=== PATIENT | male | born 1945 | race Caucasian/White ===

== ENCOUNTER 2019-08-05 05:05 | Inpatient (IN) | payer OTHER, MEDICAID, SELFPAY ==
[~2019-08-05] VITALS: Ht 165.1 cm; Wt 68.0 kg
[2019-08-05 05:05] VITALS: BP 150/98
--- NOTE | 2019-08-05 05:05 | NUR ---
PT TAKEN TO BED 10
--- NOTE | 2019-08-05 05:32 | NUR ---
PT TRAY CONTACT IS [phone], MIKE ARANGO.
[2019-08-05] MEDS ORDERED: MORPHINE SULFATE 2 MG/ML SYR IVP ONE (05:35)
--- NOTE | 2019-08-05 05:55 | NUR ---
pt medicated with morphine for epigastric pain
--- NOTE | 2019-08-05 05:55 | NUR ---
Babatunde estrada in [facility] - 08/05/19 at 0658 by [facility] PT MEDICATED WITH TORADOL FOR ABDOMINAL PAIN
--- NOTE | 2019-08-05 05:56 | NUR ---
73M CAME FROM HOME C/O ABDOMINAL PAIN/ EPIGASTRIC PAIN X 8 DAYS AND REPORTS PAIN AT 12/23. PT HAS HX OF A.FIB. HR 104 AT ARRIVAL. O2SAT 98%, TEMP 97.7, RESPIRATIONS 22. NKA MEDICAL HX: DM, HTN, CARDIAC PROBLEMS, HYPERLIPIDEMIA RX: REFER TO PT. CHART Addendum: 08/05/19 at 0603 by [facility] PT REPORTS NAUSEA AND DIARRHEA X 2 DAYS BUT NO EPISODE FOR THIS MORNING. BOWEL SOUNDS NORMOACTIVE. ABDOMEN SOFT AND NONTENDER.
[2019-08-05 06:01] LABS: HEMATOCRIT 35.3 % (36-52); HEMOGLOBIN 11.3 g/dL (12.0-18.0); MEAN CORPUSCULAR HEMOGLOBIN 25 pg (27-31); MEAN CORPUSCULAR HGB CONC 32 g/dL (33-37); MEAN CORPUSCULAR VOLUME 79.3 fL (80-94); PLATELET COUNT (AUTO) 301 K/uL (140-450); RED BLOOD CELL COUNT(AUTO) 4.46 MIL/uL (4.20-6.10); RED CELL DISTRIBUTION WIDTH 25.6 % (11.6-13.7); WHITE BLOOD COUNT (AUTO) 6.2 K/uL (4.8-10.8)
--- NOTE | 2019-08-05 06:05 | NUR ---
XRAY AT BEDSIDE.
[2019-08-05 06:20] LABS: ALBUMIN 3.6 g/dL (3.4-5.0); ANION GAP 10.2 (8-16); ASPARTATE AMINOTRANSFERASE 80 U/L (15-37); CARBON DIOXIDE 33.9 mmol/L (21-32); CHLORIDE 97 mmol/L (98-107); CREATININE 2.9 mg/dL (0.6-1.3); GLUCOSE 184 mg/dL (74-106); LIPASE 89 U/L (73-393); POTASSIUM 5.1 mmol/L (3.5-5.1); SODIUM SERUM 136 mmol/L (136-145); TOTAL BILIRUBIN 0.8 mg/dL (0.0-1.0); UREA NITROGEN, BLOOD 58 mg/dL (7-18)
[2019-08-05 06:26] LABS: LYMPHOCYTES % (MANUAL) 7 % (20-46); MONOCYTES % (MANUAL) 4 % (5-12)
--- NOTE | 2019-08-05 06:37 | NUR ---
PMHX: A.FIB, ANEMIA, CHF, CORONARY ARTERY DISEASE, CORONARY STENT PLACEMENT, DM, GI BLEED, CABG, HYPERLIPEMIA, HTN
[2019-08-05] MEDS ORDERED: FERR325E14 PO (06:53)
[2019-08-05] MEDS ORDERED: CARV12.5 PO (06:53)
[2019-08-05] MEDS ORDERED: FAMO-90 PO (06:53)
[2019-08-05] MEDS ORDERED: METF500T2 PO (06:53)
[2019-08-05] MEDS ORDERED: FURO-570 PO (06:53)
[2019-08-05] MEDS ORDERED: RIVA15TA1 PO (06:53)
[2019-08-05] MEDS ORDERED: ATI.5 PO (06:53)
[2019-08-05] MEDS ORDERED: SPIR25TA20 PO (06:53)
[2019-08-05] MEDS ORDERED: LISI-420 PO (06:53)
[2019-08-05] MEDS ORDERED: CLOP75TA55 PO (06:53)
[2019-08-05] MEDS ORDERED: ISOS10TA19 PO (06:53)
--- NOTE | 2019-08-05 07:10 | NUR ---
received report from YASMIN Warren for continuation of care. VSS, 07/23 pain
[2019-08-05] MEDS ORDERED: NACL 0.9% 1,000 ML IV SCH (07:17)
[2019-08-05] MEDS ORDERED: HYDROcodone/APAP 5/325 MG 1 TAB TAB PO PRN (07:20)
[2019-08-05] MEDS ORDERED: DOCUSATE SODIUM 100 MG GELCAP PO PRN ×2 (07:20→08:10)
[2019-08-05] MEDS ORDERED: ONDANSETRON 4 MG/2 ML VIAL IM/IVP PRN ×2 (07:20→08:10)
[2019-08-05] MEDS ORDERED: MORPHINE SULFATE 2 MG/ML SYR IVP PRN (07:20)
[2019-08-05] MEDS ORDERED: ACETAMINOPHEN 325 MG TAB PO PRN ×2 (07:20→08:10)
--- NOTE | 2019-08-05 07:44 | NUR ---
urine collected and walked to lab
--- NOTE | 2019-08-05 07:50 | NUR ---
RECEIVED PATIENT FROM [facility] ED NURSE FOR CONTINUITY OF CARE. PATIENT IS AAOX4, IRISH SPEAKING. RESPIRATIONS EVEN AND UNLABORED, ROOM AIR. VISIBLE CHEST RISE AND FALL NOTED. ON TELE MONITORING. DX OF CHEST PAIN. PATIENT C/O OF 4/10 CHEST PAIN BUT TOLERABLE. HE HAS GOTTEN MORPHINE AT ED. ABDOMEN SOFT AND NONTENDER. CARDIAC DIET. ON STRICT I&O WITH 1.5L FLUID RESTRICTION. SKIN WARM, DRY, AND INTACT. IV ON THE RIGHT AC G 20, SALINE LOCK. IV INTACT. PATIENT IS AMBULATORY. USES THE RESTROOM TOLERATED. UNIVERSAL FALL PRECAUTION. BED IN LOW POSITION. CALL LIGHT IS WITHIN REACH. WILL CONTINUE TO MONITOR.
--- NOTE | 2019-08-05 08:04 | NUR ---
Patient will be admitted to care of Dr. Berger. Admited to telemetry. Will go to room 112B. Belongings list completed. Report to YASMIN Boo.
--- NOTE | 2019-08-05 08:05 | NUR ---
HANG NS AT A RATE OF 60 ML/HR. SWABBED NARES FOR MRSA SCREEN. PATIENT STATED CHEST PAIN OF 4/10 THAT IS TOLERABLE. WILL CONTINUE TO MONITOR.
[2019-08-05] MEDS ORDERED: FAMOTIDINE 20 MG/2 ML VIAL IV PRN (08:10)
[2019-08-05] MEDS ORDERED: HYDROcodone/APAP 7.5/325 MG 1 TAB PO PRN (08:10)
[2019-08-05] MEDS ORDERED: LORazepam 2 MG/ML VIAL IM/IVP PRN (08:10)
[2019-08-05 08:28] LABS: CHOL/HDL RATIO 5.4 (1-4.5); MAGNESIUM 2.4 mg/dL (1.8-2.4); THYROID STIMULATING HORMONE 2.72 uIU/mL (0.34-3.74)
[2019-08-05] MEDS: FUROSEMIDE 40 MG/4 ML VIAL IVP SCH ×2 (09:10→16:42)
--- NOTE | 2019-08-05 09:11 | NUR ---
GIVEN LASIX VIA IVP. EXPLAINED MEDICATION. GIVEN VIETNAMESE MONOGRAM OF THE MEDICATION INFORMATION. PATIENT VERBALIZED UNDERSTANDING. DR. BONILLA AT BEDSIDE. WILL CONTINUE OT MONITOR.
[2019-08-05] MEDS ORDERED: LORazepam 0.5 MG TAB PO PRN (09:15)
[2019-08-05] MEDS ORDERED: metFORMIN 500 MG TAB PO SCH (09:15)
[2019-08-05] MEDS ORDERED: GLUCAGON 1 MG VIAL IVP PRN (09:20)
[2019-08-05] MEDS ORDERED: DEXTROSE 50% 50 ML SYR IVP PRN (09:20)
[2019-08-05 09:30] LABS: APPEARANCE,URINE SL CLOUDY (CLEAR); BILIRUBIN,URINE NEGATIVE (NEGATIVE); BLOOD, URINE NEGATIVE (NEGATIVE); COLOR,URINE DARK YELLOW (YELLOW); LEUKOCYTE ESTERASE ,URINE NEGATIVE (NEGATIVE); NITRITE, URINE NEGATIVE (NEGATIVE); PH,URINE 6.5 (5.0-9.0); UGLUCOSE NEGATIVE (NEGATIVE)
[2019-08-05 09:50] LABS: BARBITURATE, URINE NEGATIVE ng/ml (NEG <=200)
[2019-08-05 09:51] LABS: BENZODIAZEPINE, URINE POSITIVE ng/mL (NEG <=200); CANNABINOID, URINE NEGATIVE ng/mL (NEG <=50); COCAINE, URINE NEGATIVE ng/mL (NEG <=300); OPIATE, URINE POSITIVE ng/mL (NEG <=2000); PHENCYCLIDINE SCREEN,URINE NEGATIVE ng/mL (NEG <=25)
--- NOTE | 2019-08-05 09:54 | NUR ---
Railroad Car Truck Builder Note: Basic Screen: Yes High Risk DC Screen [place]: MIKE Sanchez Relationship: SON Pre-Admission Living Arrangements: Lives with Other Prior ADL Independent Current Home Health Name/Tel: N/A Current DME/02 Name/Tel: N/A Current Hospice Name/Tel: N/A Current Dialysis Name/Tel: N/A Healthcare Decision Maker: Patient Advance Directive No Physician Orders for Life Sustaining Treatment Form No Patient/Family Have Educational Needs No Information Taught: Advance Directive Person Taught: Patient Teaching Tools: Verbal Factors Affecting Learning: None Participation Level: Active Evaluation: Verbalizes Understanding Needs Additional Education: No Discipline: Case Mgt/Social Svcs Tentative Discharge Plan/Destination: No Needs Identified Will require assistance post discharge: No Referred to Retail Receiving Clerk: No Tentative Discharge Plan Summary: Patient is a 73-year-old male admitted for chest pain. Patient has PMHX of cardiac disorders and hypertension. Patient was admitted from home where he lives with , son, and roommate. SW contacted Mike Springer Jr. to complete assessment [phone]. Per Mike, patient is independent with all ADLs and is alert/oriented at baseline. Mike stated that he lives with patient and assists patient with transportation. Mike stated that patient has no history of mental health or substance abuse. Mike stated that patient sometimes has periods of forgetfulness but was told that it could be a side effect of medication that patient is taken by physician. Tentative discharge plan is for patient to return home. No further needs identified. Signature: AIDA Alonzo Date: Aug 05, 2019 Time: 09:54
[2019-08-05] MEDS: FERROUS SULFATE 325 MG TABEC PO SCH (10:07)
[2019-08-05] MEDS: CLOPIDOGREL 75 MG TAB PO SCH (10:08)
[2019-08-05] MEDS: CARVEDILOL 12.5 MG TAB PO SCH ×2 (10:08→20:24)
[2019-08-05] MEDS: ISOSORBIDE MONONITRATE 30 MG TABER PO SCH (10:08)
--- NOTE | 2019-08-05 10:10 | NUR ---
GIVEN MORNING MEDICATIONS PO. EXPLAINED MEDICATIONS. PATIENT VERBALIZED UNDERSTANDING. WILL CONTINUE TO MONITOR.
--- NOTE | 2019-08-05 10:23 | NUR ---
DC PLANNIN YRS OLD MALE PATIENT WAS ADMITTED FROM HOME WITH A DX OF CHEST PAIN. TROP 0.017 AND PENDING FOR X2. PT HAS A HX OF HTN, DM, HLD, PROSTATE CANCER ,INSOMNIA AND EARLY DEMENTIA. CXR (-) FOR PNEUMONIA SHOWED SMALL PLEURAL EFFUSION. CT ABDOMEN/PELVIS SHOWED NONSPECIFIC GALLBLADDER WAS THICKENING ACUTE CHOLECYSTITIS NOT EXCLUDED AND RECOMMENDED US OF ABDOMEN. CARDIOLOGY CONSULT WITH DR BERRIOS . CM TO FOLLOW . Addendum: 08/07/19 at 1155 by Guerita Rosales CM DC PLANNING: SEEN BY CALENDER LET OFF OPERATOR , SCHEDULED FOR NATTY SCAN TODAY , NEPHRO RECOMMENDED STRICT I&O DAILY WT AND CHECK RENAL US. DC PLAN TO GO HOME WHEN STABLE CM TO FOLLOW.
--- NOTE | 2019-08-05 10:38 | NUR ---
TKO TO 5 ML/HR NS IVF
--- NOTE | 2019-08-05 10:45 | NUR ---
PATIENT AMBULATED TO THE BATHROOM. NO DIZZINESS. WILL CONTINUE TO MONITOR
[2019-08-05] MEDS: BLOOD GLUCOSE MONITORING 1 DEV DEV FS SCH ×3 (11:10→20:20)
--- NOTE | 2019-08-05 11:22 | NUR ---
BLOOD SUGAR CHECK 139. NO INSULIN COVERAGE NEED. WILL CONTINUE TO MONITOR
--- NOTE | 2019-08-05 11:36 | NUR ---
GIVEN NORCO FOR LOWER CHEST PAIN 09/22. EXPLAINED MEDICATION. PATIENT VERBALIZED UNDERSTANDING. BED IN LOW POSITION. CALL LIGHT IS WITHIN REACH. WILL CONTINUE TO MONITOR.
[2019-08-05 11:53] LABS: ALBUMIN 3.7 g/dL (3.4-5.0); FREE T4 (FREE THYROXINE) 1.18 ng/dL (0.76-1.46)
[2019-08-05 12:00] VITALS: BP 138/102
[2019-08-05 12:03] LABS: PROTHROMBIN TIME 14.4 secs (10.8-13.4)
--- NOTE | 2019-08-05 12:15 | NUR ---
CRITICAL LAB: LACTIC ACID 2.9. TRENDING. DR. ROSSI IS AWARE.
[2019-08-05 12:23] LABS: ANION GAP 12.7 (8-16); CARBON DIOXIDE 32.3 mmol/L (21-32); CHLORIDE 97 mmol/L (98-107); GLUCOSE 152 mg/dL (74-106); SODIUM SERUM 137 mmol/L (136-145); UREA NITROGEN, BLOOD 58 mg/dL (7-18)
--- NOTE | 2019-08-05 12:28 | NUR ---
EXPLAINED TO PATIENT THAT HE WILL NOT BE ABLE TO EAT BECAUSE DR. ROSSI ORDERED FOR HIM NPO EXCEPT MEDICATIONS. PATIENT VERBALIZED UNDERSTANDING. WILL CONTINUE TO MONITOR.
--- NOTE | 2019-08-05 12:35 | NUR ---
REASSESSED FOR PAIN. PATIENT STATED 1/0 CHEST PAIN, TOLERABLE. WILL CONTINUE TO MONITOR.
--- NOTE | 2019-08-05 14:26 | NUR ---
PATIENT C/O NAUSEA AND VOMITING. GIVEN ZOFRAN VIA IVP. EXPLAINED MEDICATION. PATIENT VERBALIZED UNDERSTANDING. PATIENT STATED THAT HE DID NOT HAVE ANY BM SINCE HE GOT TO THE UNIT. HE HAD ONE EARLIER TODAY PRIOR TO GOING IN ED. WILL CONTINUE TO MONITOR.
[2019-08-05 16:00] VITALS: BP 138/105
--- NOTE | 2019-08-05 16:45 | NUR ---
BLOOD SUGAR CHECK: 132. NO INSULIN COVERAGE. GIVEN LASIX VIA IVP. EXPLAINED MEDICATION. PATIENT VERBALIZED UNDERSTANDING. BED IN LOW POSITION. CALL LIGHT IS WITHIN REACH. WILL CONTINUE TO MONITOR.
--- NOTE | 2019-08-05 18:10 | NUR ---
PATIENT IS EATING DINNER AT THIS TIME. NO SIGNS OF DISTRESS NOTED. BED IN LOW POSITION. CALL LIGHT IS WITHIN REACH. WILL CONTINUE TO MONITOR.
--- NOTE | 2019-08-05 19:15 | NUR ---
ENDORSED PATIENT TO THE MALLET AND DIE CUTTER NURSE FOR CONTINUITY OF CARE. PATIENT IS IN STABLE CONDITION.
--- NOTE | 2019-08-05 19:15 | NUR ---
RECEIVED PT AAOX4 , NID - O2 SAT WNL , DENIES ANY PAIN . IV SITE INTACT AND PATENT., AMBULATORY - ON TELE MONITOR. SAFETY / FALL PRECAUTION PROTOCOL IN PLACE . POC DISCUSSED AND VERBALIZE UNDERSTANDING . WILL CONT. TO MONITOR. ON LIMITED FLD. INTAKE RE EMPAHASIZED .
[2019-08-05 20:00] VITALS: BP 121/90
[2019-08-05] MEDS: RIVAROXABAN 15 MG TAB PO SCH (20:27)
--- NOTE | 2019-08-05 20:30 | NUR ---
C/O OF CONSTIPATION - HE HAS NO BM SINCE HE ADMITED HERE - DENIES DIARRHEA - GIVE PRN COLACE- WILL INFORM EMELY.FOR STILL STOOL COLLECTION.
[2019-08-05] MEDS ORDERED: ATORVASTATIN 20 MG TAB PO SCH (21:00)
[2019-08-06] VITALS: BP 124/76
--- NOTE | 2019-08-06 | NUR ---
MADE ROUNDS , NO S/S OF ACUTE DISTRESS NOTED.
[2019-08-06] MEDS ORDERED: POLYETHYLENE GLYCOL 17 GM/PKT PO SCH (03:45)
[2019-08-06 04:00] VITALS: BP 121/77
--- NOTE | 2019-08-06 04:00 | NUR ---
PT . WENT TO NURSE'S STATION - HE IS COMPLAINING OF CONSTIPATION HE SAID SEEMS COLACE DOES NOT WORKS - WILL REFER TO EMELY.
--- NOTE | 2019-08-06 04:54 | NUR ---
MIRALAX P.O GIVEN ORDERED . RESTRICTED FLD. INTAKE RE EMPHASIZED .WILL CONT. TO MONITOR.
--- NOTE | 2019-08-06 06:00 | NUR ---
STILL NO BM .
[2019-08-06 06:07] LABS: T4 (THYROXINE) 5.4 ug/dL (4.5-12.0)
[2019-08-06] MEDS: BLOOD GLUCOSE MONITORING 1 DEV DEV FS SCH ×4 (06:33→21:31)
--- NOTE | 2019-08-06 07:18 | NUR ---
ENDORSED TO AM SHIFT - STILL NO BM . I TOLD TO CHUCKIE IF EVER PT. STILL NO BM - REFER HIM TO EMELY FOR POSSIBLE DULCOLAX SUPP.
--- NOTE | 2019-08-06 07:19 | NUR ---
RECEIVED REPORT FROM LINK TRAINER NURSE ASHLEY FOR CONTINUITY OF CARE. PT IN STABLE CONDITION. RESPIRATIONS EVEN AND UNLABORED, ROOM AIR. IV INTACT AND PATENT. SAFETY MEASURES IN PLACE. BED IN LOW POSITION. CALL LIGHT AT BEDSIDE. WILL CONTINUE TO MONITOR.
[2019-08-06 07:35] LABS: BASOPHILS % (AUTO) 0.7 % (0.0-2.0); EOSINOPHILS # (AUTO) 0.1 K/uL (0-0.4); EOSINOPHILS % (AUTO) 1.1 % (0.0-4.0); HEMOGLOBIN 10.1 g/dL (12.0-18.0); LYMPHOCYTES # (AUTO) 0.9 K/uL (2.0-11.5); LYMPHOCYTES % (AUTO) 15.4 % (20.5-51.1); MEAN CORPUSCULAR HEMOGLOBIN 26 pg (27-31); MEAN CORPUSCULAR HGB CONC 33 g/dL (33-37); MEAN CORPUSCULAR VOLUME 79.5 fL (80-94); MONOCYTES # (AUTO) 0.5 K/uL (0.8-1.0); MONOCYTES % (AUTO) 8.1 % (1.7-9.3); NEUTROPHILS # (AUTO) 4.4 K/uL (1.8-7.7); NEUTROPHILS % (AUTO) 74.7 % (42.2-75.2); PLATELET COUNT (AUTO) 260 K/uL (140-450); RED CELL DISTRIBUTION WIDTH 25.4 % (11.6-13.7); WHITE BLOOD COUNT (AUTO) 5.9 K/uL (4.8-10.8)
[2019-08-06 07:49] LABS: MAGNESIUM 2.2 mg/dL (1.8-2.4); PHOSPHORUS 4.6 mg/dL (2.5-4.9)
[2019-08-06 07:53] LABS: ANION GAP 11.9 (8-16); CARBON DIOXIDE 33.1 mmol/L (21-32); CHLORIDE 97 mmol/L (98-107); CREATININE 3.1 mg/dL (0.6-1.3); GLUCOSE 99 mg/dL (74-106); SODIUM SERUM 137 mmol/L (136-145)
[2019-08-06 08:00] VITALS: BP 141/88
[2019-08-06 08:56] LABS: UREA NITROGEN, BLOOD 63 mg/dL (7-18)
--- NOTE | 2019-08-06 09:04 | NUR ---
PATIENT HAS BEEN SCREENED AND CATEGORIZED HIGH NUTRITION RISK. PATIENT WILL BE SEEN WITHIN 1-2 DAYS OF ADMISSION. 08/06/[address]
--- NOTE | 2019-08-06 10:05 | NUR ---
PATIENT SIGNED MEDICAL INFORMATION RELEASE FORM FOR [facility] AT THIS TIME.
[2019-08-06] MEDS: FERROUS SULFATE 325 MG TABEC PO SCH (10:23)
[2019-08-06] MEDS: LISINOPRIL 20 MG TAB PO SCH (10:23)
[2019-08-06] MEDS: FAMOTIDINE 20 MG TAB PO SCH (10:24)
[2019-08-06] MEDS: ISOSORBIDE MONONITRATE 30 MG TABER PO SCH (10:25)
[2019-08-06] MEDS: CLOPIDOGREL 75 MG TAB PO SCH (10:25)
[2019-08-06] MEDS: CARVEDILOL 12.5 MG TAB PO SCH ×2 (10:26→21:28)
[2019-08-06] MEDS: FUROSEMIDE 40 MG/4 ML VIAL IVP SCH ×2 (10:27→17:49)
[2019-08-06] MEDS: SPIRONOLACTONE 25 MG TAB PO SCH (10:27)
[2019-08-06 12:00] VITALS: BP 126/82
--- NOTE | 2019-08-06 12:06 | NUR ---
NUCLEAR MEDICINE AT BEDSIDE FOR ECHO AT THIS TIME. PT IN STABLE CONDITION.
--- NOTE | 2019-08-06 14:15 | NUR ---
PATIENT TALKING ON PHONE AT THIS TIME. PATIENT IN STABLE CONDITION. BED IN LOW POSITION. CALL LIGHT AT BEDSIDE. WILL CONTINUE TO MONITOR.
--- NOTE | 2019-08-06 14:57 | NUR ---
08/06/19 RD INITIAL ASSESSMENT COMPLETED PLEASE REFER TO NUTRITION ASSESSMENT UNDER CARE ACTIVITY FOR ESTIMATED NUTRITIONAL NEEDS. 1. CONTINUE CARDIAC AND CCHO 60GM DIET TOLERATED 2. CONTINUE FLUID RESTRICTION OF 1.5 L/DAY 3. RD PROVIDED NUTRITION EDUCATION FOR CARDIAC DIET IN [place]. PT ACCEPTED 4. IF PO INTAKE <50% RECOMMEND SNACKS BID 5. RD TO FOLLOW-UP 3-5 DAYS, MODERATE RISK [address]
[2019-08-06 16:00] VITALS: BP 134/88
--- NOTE | 2019-08-06 16:10 | NUR ---
PT WATCHING TV AT THIS TIME. PATIENT IN STABLE CONDITION. BED IN LOW POSITION. CALL LIGHT AT BEDSIDE. WILL CONTINUE TO MONITOR.
[2019-08-06] MEDS ORDERED: BISACODYL 5 MG TABEC PO PRN (16:45)
[2019-08-06] MEDS: SODIUM FERRIC GLUCONATE 125 MG in NACL 0.9% 100 ML IV SCH (17:49)
--- NOTE | 2019-08-06 17:52 | NUR ---
CERTIFIED TRAVEL COUNSELOR AT BEDSIDE FOR KIDNEY ULTRASOUND. PT IN STABLE CONDITION. BED IN LOW POSITION. CALL LIGHT AT BEDSIDE. WILL CONTINUE TO MONITOR.
--- NOTE | 2019-08-06 19:15 | NUR ---
GAVE REPORT TO OPHTHALMIC ASST NURSE COURT FOR CONTINUITY OF CARE. PT IN STABLE CONDITION.
--- NOTE | 2019-08-06 19:16 | NUR ---
RECEIVED ENDORSEMENT AT BEDSIDE FROM AM SHIFT RN. PATIENT IS CITIZEN OF [place] SPEAKING, ABLE TO MAKE NEEDS KNOWN. RESPIRATION EVEN AND UNLABORED. DENIES PAIN. NO CHEST PAIN. IV SITE AT RAC 20G. INTACT. STRICK I AND O OF 1.5 LITERS/DAY. PLAN OF CARE WAS DISCUSSED. CALL LIGHT WITHIN REACH. WILL CONTINUE TO MONITOR.
--- NOTE | 2019-08-06 19:50 | NUR ---
RECEIVED A CALL FROM SHIV AT [facility]. HE GAVE INSTRUCTIONS FOR STRESS TEST TOMORROW TO HOLD/NO CAFFEINE FOR 8 HOURS, NPO POST BREAKFAST AND HOLD HOLD BETA IRIS TOMORROW. INSTRUCTIONS NOTED. I EXPLAINED TO PATIENT IN DETAIL. PATIENT VERBALIZED UNDERSTANDING.
[2019-08-06 20:00] VITALS: BP 136/92
[2019-08-06] MEDS: RIVAROXABAN 15 MG TAB PO SCH (21:30)
[2019-08-06] MEDS: INSULIN LISPRO SLIDING SCALE 100 UNITS/ML VIAL SUBQ PRN (21:31)
--- NOTE | 2019-08-06 21:31 | NUR ---
DUE MEDS GIVEN ORDERED. TOLERATED WELL. PATIENT REFUSED INSULIN 2 UNITS FOR BLOOD SUGAR OF 151. PATIENT SAID HE DIDN'T EAT MUCH. PER ENDORSEMENT BY AM NURSE, PATIENT HAS DECREASED APPETITE. CALL LIGHT WITHIN REACH. WILL CONTINUE TO MONITOR.
[2019-08-07] VITALS: BP 143/85
--- NOTE | 2019-08-07 | NUR ---
VITAL SIGNS STABLE. PATIENT IN BED. DENIES ANY PAIN OR DISCOMFORT. SAFETY MEASURES IN PLACE. CALL LIGHT WITHIN REACH. WILL CONTINUE TO MONITOR.
[2019-08-07] MEDS: MELATONIN 3 MG TAB PO PRN (02:07)
--- NOTE | 2019-08-07 02:09 | NUR ---
PATIENT SAID HE CANNOT SLEEP AND WANTED SOMETHING FOR SLEEP. ENCOURAGED RELAXATION. INFORMED RESIDENT DOCTOR. DOCTOR ORDERED MELATONIN 3MG PRN. MELATONIN GIVEN TO PATIENT. CALL LIGHT WITHIN REACH. WILL CONTINUE TO MONITOR.
--- NOTE | 2019-08-07 02:43 | NUR ---
C/O LEFT SHOULDER PAIN. 06/22. REPOSITIONED. TYLENOL 650MG PO GIVEN ORDERED. WILL CONTINUE TO MONITOR. Addendum: 08/07/19 at 0750 by Joann Davis RN WRONG PATIENT
[2019-08-07 04:00] VITALS: BP 134/86
--- NOTE | 2019-08-07 06:00 | NUR ---
PATIENT IS AWAKE. BLOOD SUGAR CHECKED 137. NO INSULIN NEEDED. PATIENT IS STABLE. DENIES PAIN. NO SOB.
[2019-08-07] MEDS: BLOOD GLUCOSE MONITORING 1 DEV DEV FS SCH ×4 (06:20→20:11)
--- NOTE | 2019-08-07 07:27 | NUR ---
PATIENT IS STABLE. DENIES PAIN. NO SOB. ENDORSED TO AM SHIFT RN FOR CONTINUITY OF CARE.
--- NOTE | 2019-08-07 07:28 | NUR ---
SHIFT REPORT RECEIVED FROM JR. SYSTEMS ADMINISTRATOR NURSE. PT IS IN BED RESPONSIVE TO VERBAL STIMULI. NO DISTRESS NOTED. NO COMPLAINS OF PAIN. SAFETY MEASURES IN PLACE. CALL LIGHT IN REACH. WILL CONTINUE TO MONITOR.
[2019-08-07 07:49] LABS: MAGNESIUM 2.3 mg/dL (1.8-2.4); PHOSPHORUS 5.2 mg/dL (2.5-4.9)
[2019-08-07 08:00] VITALS: BP 136/96
[2019-08-07 08:05] LABS: BASOPHILS % (AUTO) 0.5 % (0.0-2.0); EOSINOPHILS # (AUTO) 0.2 K/uL (0-0.4); EOSINOPHILS % (AUTO) 2.4 % (0.0-4.0); HEMATOCRIT 36.5 % (36-52); HEMOGLOBIN 11.6 g/dL (12.0-18.0); LYMPHOCYTES # (AUTO) 0.6 K/uL (2.0-11.5); MEAN CORPUSCULAR HEMOGLOBIN 25 pg (27-31); MEAN CORPUSCULAR HGB CONC 32 g/dL (33-37); MEAN CORPUSCULAR VOLUME 79.8 fL (80-94); MONOCYTES # (AUTO) 0.4 K/uL (0.8-1.0); MONOCYTES % (AUTO) 6.5 % (1.7-9.3); NEUTROPHILS # (AUTO) 5.5 K/uL (1.8-7.7); NEUTROPHILS % (AUTO) 81.6 % (42.2-75.2); PLATELET COUNT (AUTO) 310 K/uL (140-450); RED BLOOD CELL COUNT(AUTO) 4.58 MIL/uL (4.20-6.10); RED CELL DISTRIBUTION WIDTH 25.6 % (11.6-13.7); WHITE BLOOD COUNT (AUTO) 6.7 K/uL (4.8-10.8)
[2019-08-07 08:08] LABS: FOLIC ACID 12.8 ng/mL (>3.0)
[2019-08-07 08:20] LABS: ANION GAP 13.4 (8-16); CARBON DIOXIDE 31.5 mmol/L (21-32); CHLORIDE 96 mmol/L (98-107); CREATININE 2.6 mg/dL (0.6-1.3); GLUCOSE 124 mg/dL (74-106); POTASSIUM 3.9 mmol/L (3.5-5.1); SODIUM SERUM 137 mmol/L (136-145); UREA NITROGEN, BLOOD 59 mg/dL (7-18)
[2019-08-07] MEDS: FUROSEMIDE 40 MG/4 ML VIAL IVP SCH ×2 (08:35→16:16)
[2019-08-07] MEDS: FERROUS SULFATE 325 MG TABEC PO SCH (08:35)
[2019-08-07] MEDS: ISOSORBIDE MONONITRATE 30 MG TABER PO SCH (08:36)
[2019-08-07] MEDS: CLOPIDOGREL 75 MG TAB PO SCH (08:36)
[2019-08-07] MEDS: CARVEDILOL 12.5 MG TAB PO SCH ×2 (08:36→20:17)
[2019-08-07] MEDS: LISINOPRIL 20 MG TAB PO SCH (08:37)
[2019-08-07] MEDS: FAMOTIDINE 20 MG TAB PO SCH (08:37)
[2019-08-07] MEDS: SPIRONOLACTONE 25 MG TAB PO SCH (08:37)
[2019-08-07] MEDS: busPIRone 5 MG TAB PO SCH ×2 (08:40→20:18)
--- NOTE | 2019-08-07 09:00 | NUR ---
PT IS STABLE AND AMBULATING IN ROOM. NO DISTRESS OR COMPLAINS OF PAIN REPORTED. WILL CONTINUE TO MONITOR. CALL LIGHT IN REACH.
[2019-08-07 12:00] VITALS: BP 138/89
--- NOTE | 2019-08-07 13:05 | NUR ---
PT IS OFF OF UNIT FOR LEXISCAN.
[2019-08-07] MEDS ORDERED: REGADENOSON 0.4 MG/5 ML SYR IV SCH (14:30)
--- NOTE | 2019-08-07 15:00 | NUR ---
PT IS AWAKE AND RESPONSIVE. PT AMBULATES TO RESTROOM. NO COMPLAINS OF PAIN O DISTRESS NOTED. WILL CONTINUE TO MONITOR. CALL LIGHT IN REACH.
[2019-08-07 16:00] VITALS: BP 130/79
[2019-08-07] MEDS: INSULIN LISPRO SLIDING SCALE 100 UNITS/ML VIAL SUBQ PRN (16:18)
[2019-08-07] MEDS: SODIUM FERRIC GLUCONATE 125 MG in NACL 0.9% 100 ML IV SCH (17:41)
--- NOTE | 2019-08-07 18:41 | NUR ---
PT IS AWAKE AND RESPONSIVE. PT HAD DINNER. NO COMPLAINS OF PAIN O DISTRESS NOTED. WILL CONTINUE TO MONITOR. CALL LIGHT IN REACH.
--- NOTE | 2019-08-07 19:09 | NUR ---
SHIFT REPORT GIVEN TO WINDOWS DEPLOYMENT TECHNICIAN NURSE. PT IS IN BED AWAKE RESPONSIVE AND IN STABLE CONDITION. SAFETY MEASURES IN PLACE. CALL LIGHT IN REACH.
--- NOTE | 2019-08-07 19:10 | NUR ---
RECEIVED REPORT FROM DAY SHIFT NURSE. PATIENT IN BED. AWAKE AND ALERT. ABLE TO MAKE NEEDS KNOWN. DENIES ANY PAIN OR DISCOMFORT AT THIS TIME. RESPIRATIONS EVEN AND UNLABORED. IV ACCESS PATENT AND INTACT. PLAN OF CARE DISCUSSED. KEPT COMFORTABLE. SAFETY MEASURES IN PLACE. CALL LIGHT WITHIN REACH. WILL CONTINUE TO MONITOR.
[2019-08-07 20:00] VITALS: BP 138/74
[2019-08-07] MEDS: RIVAROXABAN 15 MG TAB PO SCH (20:20)
--- NOTE | 2019-08-07 20:22 | NUR ---
VITAL SIGNS STABLE. SCHEDULED MEDICATIONS GIVEN ORDERED. PATIENT DENIES ANY PAIN OR DISCOMFORT AT THIS TIME. SAFETY MEASURES IN PLACE. WILL CONTINUE TO MONITOR.
--- NOTE | 2019-08-07 22:11 | NUR ---
PATIENT JUST GOT IN BED AFTER GOING TO BATHROOM. NO S/SX OF DISTRESS NOTED. WATER GIVEN REQUESTED. DENIES ANY PAIN OR DISCOMFORT. SAFETY MEASURES IN PLACE. CALL LIGHT WITHIN REACH. WILL CONTINUE TO MONITOR.
--- NOTE | 2019-08-07 23:53 | NUR ---
VITAL SIGNS STABLE. PATIENT IN BED. DENIES ANY PAIN OR DISCOMFORT. SAFETY MEASURES IN PLACE. CALL LIGHT WITHIN REACH. WILL CONTINUE TO MONITOR.
[2019-08-08] VITALS (8 sets, daily range): BP systolic 129–145; BP diastolic 68–99
--- NOTE | 2019-08-08 01:10 | NUR ---
RECEIVED CALL PT ACCEPTED TO [facility] UNDER DR HIRSCH, TRANSFER CENTER WILL CALL BACK FOR BED. Addendum: 08/08/19 at 1319 by Anya Paula RN WRONG TIME
--- NOTE | 2019-08-08 04:23 | NUR ---
VITAL SIGN STABLE. PATIENT LYING IN BED RESTING. DENIES ANY PAIN OR DISCOMFORT. RESPIRATIONS EVEN AND UNLABORED. NO REQUESTS MADE AT THIS TIME. KEPT COMFORTABLE. WILL CONTINUE TO MONITOR.
[2019-08-08] MEDS: BLOOD GLUCOSE MONITORING 1 DEV DEV FS SCH ×3 (05:42→16:51)
[2019-08-08] MEDS: MELATONIN 3 MG TAB PO PRN (05:49)
--- NOTE | 2019-08-08 05:53 | NUR ---
PATIENT HAVING TROUBLE SLEEPING. PRN MELATONIN GIVEN REQUESTED BY PATIENT. WILL CONTINUE TO MONITOR.
--- NOTE | 2019-08-08 07:00 | NUR ---
ENDORSED TO DAYSHIFT NURSE FOR CONTINUITY OF CARE. PATIENT IN STABLE CONDITION.
--- NOTE | 2019-08-08 07:05 | NUR ---
RECEIVED BEDSIDE REPORT FROM NIGHTSHIFT NURSE. PT RESTING IN BED. ABLE TO MAKE NEEDS KNOWN. RESPIRATIONS EVEN AND UNLABORED WITH NO SOB OR RESPIRATORY DISTRESS. SKIN WARM AND DRY TO TOUCH. IV SITE IN RAC 20G IS CLEAN, DRY, AND INTACT. SAFETY MEASURES IN PLACE. WILL CONTINUE TO MONITOR
[2019-08-08 07:42] LABS: BASOPHILS % (AUTO) 0.5 % (0.0-2.0); EOSINOPHILS # (AUTO) 0.2 K/uL (0-0.4); EOSINOPHILS % (AUTO) 3.5 % (0.0-4.0); HEMATOCRIT 33.6 % (36-52); HEMOGLOBIN 10.8 g/dL (12.0-18.0); LYMPHOCYTES # (AUTO) 0.8 K/uL (2.0-11.5); LYMPHOCYTES % (AUTO) 12.1 % (20.5-51.1); MEAN CORPUSCULAR HEMOGLOBIN 26 pg (27-31); MEAN CORPUSCULAR HGB CONC 32 g/dL (33-37); MEAN CORPUSCULAR VOLUME 79.9 fL (80-94); MONOCYTES # (AUTO) 0.5 K/uL (0.8-1.0); MONOCYTES % (AUTO) 7.8 % (1.7-9.3); NEUTROPHILS # (AUTO) 4.9 K/uL (1.8-7.7); NEUTROPHILS % (AUTO) 76.1 % (42.2-75.2); PLATELET COUNT (AUTO) 338 K/uL (140-450); RED BLOOD CELL COUNT(AUTO) 4.21 MIL/uL (4.20-6.10); RED CELL DISTRIBUTION WIDTH 25.5 % (11.6-13.7); WHITE BLOOD COUNT (AUTO) 6.5 K/uL (4.8-10.8)
[2019-08-08 07:58] LABS: ANION GAP 13.7 (8-16); CARBON DIOXIDE 30.9 mmol/L (21-32); CHLORIDE 100 mmol/L (98-107); GLUCOSE 95 mg/dL (74-106); POTASSIUM 4.6 mmol/L (3.5-5.1); SODIUM SERUM 140 mmol/L (136-145); UREA NITROGEN, BLOOD 42 mg/dL (7-18)
[2019-08-08 08:01] LABS: MAGNESIUM 2.1 mg/dL (1.8-2.4); PHOSPHORUS 4.7 mg/dL (2.5-4.9)
--- NOTE | 2019-08-08 09:14 | NUR ---
CALLED [facility] TRANSFER CENTER REGARDING DR ORDER OF HLOC TX FOR CARDIAC CATH.
[2019-08-08] MEDS: FERROUS SULFATE 325 MG TABEC PO SCH (09:47)
[2019-08-08] MEDS: SPIRONOLACTONE 25 MG TAB PO SCH (09:47)
[2019-08-08] MEDS: ISOSORBIDE MONONITRATE 30 MG TABER PO SCH (09:48)
[2019-08-08] MEDS: FAMOTIDINE 20 MG TAB PO SCH (09:49)
[2019-08-08] MEDS: LISINOPRIL 20 MG TAB PO SCH (09:49)
[2019-08-08] MEDS: busPIRone 5 MG TAB PO SCH (09:49)
[2019-08-08] MEDS: CLOPIDOGREL 75 MG TAB PO SCH (09:50)
[2019-08-08] MEDS: FUROSEMIDE 40 MG/4 ML VIAL IVP SCH (09:51)
[2019-08-08] MEDS: CARVEDILOL 12.5 MG TAB PO SCH (09:51)
--- NOTE | 2019-08-08 09:56 | NUR ---
ADMINISTERED SCHED MED PRESCRIBED PER MD ORDER. PT TOLERATED WELL. MEDICATION EDUCATION PERFORMED. PT VERBALIZED UNDERSTANDING. SAFETY MEASURES IN PLACE. WILL CONTINUE TO MONITOR
--- NOTE | 2019-08-08 10:34 | NUR ---
FAXED FACE SHEETS,H&P AND PROGRESS NOTES TO [facility]
--- NOTE | 2019-08-08 11:30 | NUR ---
PT BLOOD SUGAR IS 138. NO INSULIN COVERAGE NEEDED AT THIS TIME. SAFETY MEASURES IN PLACE. WILL CONTINUE TO MONITOR
--- NOTE | 2019-08-08 12:09 | NUR ---
RECEIVED PHONE CALL REGARDING MORE INFORMATION NEEDED FOR ADMITTING FAXED LABS, IMAGING RESULTS AND CARDIOLOGY CONSULT TO [facility].
--- NOTE | 2019-08-08 12:15 | NUR ---
PT IS AWARE OF TRANSFER TO [facility]. SAFETY MEASURES IN PLACE. WILL CONTINUE TO MONITOR
--- NOTE | 2019-08-08 13:10 | NUR ---
RECEIVED CALL PT ACCEPTED TO [facility] UNDER DR HIRSCH, TRANSFER CENTER WILL CALL BACK FOR BED.
--- NOTE | 2019-08-08 14:14 | NUR ---
PT COMPLAINED OF IV SITE PAIN. IV SITE OCCLUDED AND WAS REMOVED. NEW IV STARTED ON RIGHT WRIST 24G IS CLEAN, DRY, AND INTACT. SAFETY MEASURES IN PLACE. WILL CONTINUE TO MONITOR
--- NOTE | 2019-08-08 15:39 | NUR ---
PT CALLED AND COMPLAINED OF ANXIETY AND RESTLESSNESS. PRN ATIVAN ADMINISTERED PRESCRIBED PER MD ORDER. PT TOLERATED WELL. MEDICATION EDUCATION PERFORMED. PT VERBALIZED UNDERSTANDING. SAFETY MEASURES IN PLACE. WILL CONTINUE TO MONITOR.
[2019-08-08] MEDS ORDERED: SIMETHICONE 80 MG TAB.CHEW PO PRN (15:45)
[2019-08-08] MEDS ORDERED: BISA5TAB79 PO (16:16)
[2019-08-08] MEDS ORDERED: GLUC-805 FS (16:16)
[2019-08-08] MEDS ORDERED: BUS5 PO (16:16)
[2019-08-08] MEDS ORDERED: HUMSLIDE SUBQ (16:16)
[2019-08-08] MEDS ORDERED: MELA3TAB56 PO (16:16)
[2019-08-08] MEDS ORDERED: DOCU-299 PO (16:16)
[2019-08-08] MEDS: INSULIN LISPRO SLIDING SCALE 100 UNITS/ML VIAL SUBQ PRN (17:25)
--- NOTE | 2019-08-08 17:30 | NUR ---
ADMINISTERED SCHED MED PRESCRIBED PER MD ORDER. PT TOLERATED WELL. MEDICATION EDUCATION PERFORMED. PT VERBALIZED UNDERSTANDING. PT FAMILY BROUGHT PT SOME BELONGINGS. BAG GIVEN TO PATIENT. SAFETY MEASURES IN PLACE. WILL CONTINUE TO MONITOR
--- NOTE | 2019-08-08 18:23 | NUR ---
CALLED [facility], WAS TOLD PT HAS A BED IN TELE 2 ROOM 331 b, TOO CALL [phone] FOR REPORT.
--- NOTE | 2019-08-08 18:25 | NUR ---
REPORT GIVEN TO JEISON HOFFMAN AT [facility]. RN VERBALIZED UNDERSTANDING AND READ BACK INFORMATION. SAFETY MEASURES IN PLACE. WILL CONTINUE TO MONITOR
--- NOTE | 2019-08-08 19:20 | NUR ---
ENDORSED AT BEDSIDE. PT IS STABLE
--- NOTE | 2019-08-08 19:25 | NUR ---
RECEIVED FROM AM RN IN BED AWAKE AND SITTING UP IN BED. SPEAKS CHADIAN AND PORTUGUESE. HX. DEMENTIA BUT AWARE OF CARE AND TRANSFER. ABLE TO ASK QUESTIONS AND ABLE TO ANSWER WELL TOO. FOR TRANSFER TO [facility] . TRANSFER REPORT TO RECEIVING NURSE IN [facility] DONE BY NUHA RN. ALL PAPER WORKS IN [place] AND [place] . WAITING FOR TRANSPORTATION.
--- NOTE | 2019-08-08 20:15 | NUR ---
TRANSPORT FOR PT.IN HERE TO TRANSFER [facility]. NO BELONGINGS LEFT BEHIND. A/O X 3. ROM X 4. NO COMPLAINTS DONE.
--- NOTE | 2019-08-08 20:32 | NUR ---
PT. LEFT ROOM WITH ALL BELONGINGS WITH HIM. NOTHING LEFT BEHIND. NAME BAND TAKEN OUT AND CONFIRMED PT. WITH PARAMEDICS. PT. NO COMPLAINTS DONE. REPORT GIVEN TO PARAMEDICS. CAHRGE NURSE MADE AWARE AND CHARGE NURSE AWARE.
[2019-08-09] MEDS ORDERED: FUROSEMIDE 40 MG/4 ML VIAL IVP SCH (09:00)
== END 2019-08-08 20:30 | disposition short-term general hospital (02) | DRG 682 ==
LOC: MED 05:05 → MTU 07:21
PROVIDERS: ADMIT General Practice; ATTEND General Practice
DX: N17.0 Acute kidney failure with tubular necrosis (principal); I50.43 Acute on chronic combined systolic (congestive) and diastolic (congestive) heart failure; E43 Unspecified severe protein-calorie malnutrition; I13.0 Hypertensive heart and chronic kidney disease with heart failure and stage 1 through stage 4 chronic kidney disease, or unspecified chronic kidney disease; D68.59 Other primary thrombophilia; N18.3 Chronic kidney disease, stage 3 (moderate); R74.0 Nonspecific elevation of levels of transaminase and lactic acid dehydrogenase [LDH]; K81.9 Cholecystitis, unspecified; E11.22 Type 2 diabetes mellitus with diabetic chronic kidney disease; Z68.25 Body mass index [BMI] 25.0-25.9, adult; Z95.1 Presence of aortocoronary bypass graft; Z95.5 Presence of coronary angioplasty implant and graft; D50.9 Iron deficiency anemia, unspecified; E11.69 Type 2 diabetes mellitus with other specified complication; E78.5 Hyperlipidemia, unspecified; F41.9 Anxiety disorder, unspecified; I07.1 Rheumatic tricuspid insufficiency; Z85.46 Personal history of malignant neoplasm of prostate; Z90.79 Acquired absence of other genital organ(s); I25.10 Atherosclerotic heart disease of native coronary artery without angina pectoris
CPT/HCPCS: 36415; 71045; 76705; 76770; 80048; 80053; 80305; 81003; 82040; 82140; 82150; 82306; 82607; 82728; 82746; 82948; 83036; 83540; 83605; 83615; 83690; 83735; 83880; 84100; 84300; 84436; 84439; 84443; 84484; 84550; 85025; 85045; 85610; 85730; 87081; 88304; 93017; 96374; 97110; 97116; 97161-GP; 97530; 99285; A9500; A9502; J1815; J1940; J2270; J2405; J2785; J2916; J7030; Q0092

== ENCOUNTER 2020-07-29 03:10 | Emergency (ER) | payer MEDICAID, OTHER ==
[~2020-07-29] VITALS: Ht 165.1 cm; Wt 66.7 kg
[~2020-07-29 03:10] MED LIST: BISA5TAB79 PO; BUS5 PO; CARV25TA PO; CLOP75TA55 PO; DAPA10TA PO; FAMO-90 PO; FERR325E14 PO; FURO-570 PO; GLUC-805 FS; ISOS10TA19 PO; LIP80 PO; RIVA15TA1 PO; SACU1TAB9 PO; SPIR25TA20 PO
[2020-07-29 03:21] VITALS: BP 152/105
--- NOTE | 2020-07-29 03:40 | NUR ---
RECEIVED IN BED 7 WITH C/O EPISTAXIS X 2 HOURS. PT WITH H/O HTN AND IS TAKING BLOOD THINNERS. EPISTAXIS NOTED. ATTACHED TO CM = 100% PACED RHYTHM PMH:HTN, DM, PACEMAKER WITH DEFIB NKDA
[2020-07-29] MEDS ORDERED: PHENYLEPHRINE 0.5% 15 ML BTL NS ONE (03:55)
[2020-07-29] MEDS ORDERED: TRANEXAMIC ACID 1,000 MG/10 ML VIAL MC ONE (03:55)
[2020-07-29] MEDS ORDERED: PHENYLEPHRINE 1% 15 ML BTL NS ONE ×2 (03:58→04:25)
[2020-07-29] MEDS ORDERED: PHENYLEPHRINE 10 MG/ML VIAL ONE (04:04)
--- NOTE | 2020-07-29 04:30 | NUR ---
DR. UNDERWOOD AT BEDSIDE. MEDS GIVEN NASALLY. PT TOLERATED WELL
[2020-07-29] MEDS ORDERED: OXYM20SP1 NS (05:27)
[2020-07-29 06:20] VITALS: BP 148/94
--- NOTE | 2020-07-29 06:20 | NUR ---
Patient discharged with v/s stable. Written and verbal after care instructions given and explained. Patient alert, oriented and verbalized understanding of instructions. Ambulatory with steady gait. All questions addressed prior to discharge. ID band removed. Patient advised to follow up with PMD. Rx of AFRIN given. Patient educated on indication of medication including possible reaction and side effects. Opportunity to ask questions provided and answered.
== END 2020-07-29 06:20 | disposition home or self-care (01) ==
LOC: MED 03:10
DX: R04.0 Epistaxis (principal); I11.9 Hypertensive heart disease without heart failure; Z95.1 Presence of aortocoronary bypass graft
CPT/HCPCS: 30901; 99284; J2370; J3490

== ENCOUNTER 2020-10-21 07:57 | Inpatient (IN) | payer MEDICAID, OTHER ==
[~2020-10-21] VITALS: Ht 165.1 cm; Wt 68.5 kg
[~2020-10-21 07:57] MED LIST changes: +OXYM20SP1 NS
[2020-10-21 07:58] VITALS: BP 145/113
--- NOTE | 2020-10-21 08:01 | NUR ---
PATIENT TAKEN TO ER BED 6 BY EMS
--- NOTE | 2020-10-21 08:11 | NUR ---
75 Y/O MALE BIBA FROM HOME C/O ABDOMINAL PAIN 01/22 DESCRIBES BLOATING X2 MONTHS THAT WORSENED YESTERDAY. PT STATES +N/-V, STATES CONSTIPATION, DENIES FEVER/CHILLS. ABDOMEN IS SOFT, ROUND, TENDER BOWEL SOUNDS PRESENT X4. LAST BM 10/19/20. PMH: HTN, DM, HLD, GERD, PACEMAKER, RIGHT INGUINAL HERNIA NKA
[2020-10-21] MEDS ORDERED: ONDANSETRON 4 MG/2 ML VIAL IVP ONE (08:15)
[2020-10-21] MEDS ORDERED: fentaNYL citrate 0.05 MG/ML VIAL IVP ONE (08:15)
--- NOTE | 2020-10-21 08:21 | NUR ---
IV started to left AC 20G, good blood return. Collected blood gave to Madai mushroom laborer.
--- NOTE | 2020-10-21 08:22 | NUR ---
Pt provided UA at bedside, collected and gave to Romana computer lab aide.
--- NOTE | 2020-10-21 08:26 | NUR ---
Pt taken to CT via rcathleen.
[2020-10-21 08:37] LABS: BASOPHILS # (AUTO) 0.1 K/uL (0.00-0.22); BASOPHILS % (AUTO) 2.4 % (0.0-2.0); EOSINOPHILS # (AUTO) 0.3 K/uL (0-0.4); EOSINOPHILS % (AUTO) 5.8 % (0.0-4.0); HEMATOCRIT 45.8 % (36-52); HEMOGLOBIN 15.1 g/dL (12.0-18.0); LYMPHOCYTES # (AUTO) 0.8 K/uL (2.0-11.5); LYMPHOCYTES % (AUTO) 15.2 % (20.5-51.1); MEAN CORPUSCULAR HEMOGLOBIN 30 pg (27-31); MEAN CORPUSCULAR HGB CONC 33 g/dL (33-37); MEAN CORPUSCULAR VOLUME 91.7 fL (80-94); MONOCYTES # (AUTO) 0.4 K/uL (0.8-1.0); MONOCYTES % (AUTO) 7.9 % (1.7-9.3); NEUTROPHILS # (AUTO) 3.6 K/uL (1.8-7.7); NEUTROPHILS % (AUTO) 68.7 % (42.2-75.2); PLATELET COUNT (AUTO) 241 K/uL (140-450); RED CELL DISTRIBUTION WIDTH 18.7 % (11.6-13.7); WHITE BLOOD COUNT (AUTO) 5.2 K/uL (4.8-10.8)
[2020-10-21 08:41] LABS: ANION GAP 14.6 (8-16); CARBON DIOXIDE 25.8 mmol/L (21-32); CHLORIDE 103 mmol/L (98-107); CREATININE 1.6 mg/dL (0.6-1.3); GLUCOSE 122 mg/dL (74-106); POTASSIUM 3.4 mmol/L (3.5-5.1); SODIUM SERUM 140 mmol/L (136-145); UREA NITROGEN, BLOOD 28 mg/dL (7-18)
--- NOTE | 2020-10-21 08:44 | NUR ---
Pt brought to ER bed 6 via gurney.
--- NOTE | 2020-10-21 08:46 | NUR ---
Per sorter/assay tech pt had 1 episode of vomiting, new emesis bag provided. made aware.
[2020-10-21 08:52] LABS: ALBUMIN 3.3 g/dL (3.4-5.0); ASPARTATE AMINOTRANSFERASE 31 U/L (15-37); LIPASE 96 U/L (73-393); TOTAL BILIRUBIN 2.4 mg/dL (0.0-1.0)
--- NOTE | 2020-10-21 09:01 | NUR ---
Pt sleeping, visible equal rise and fall of chest, VSS, will continue to monitor.
[2020-10-21 09:03] LABS: BILIRUBIN,URINE 1+ (NEGATIVE); BLOOD, URINE NEGATIVE (NEGATIVE); COLOR,URINE YELLOW (YELLOW); LEUKOCYTE ESTERASE ,URINE NEGATIVE (NEGATIVE); NITRITE, URINE NEGATIVE (NEGATIVE); UGLUCOSE 1+ (NEGATIVE)
[2020-10-21 09:05] LABS: APPEARANCE,URINE CLEAR (CLEAR)
--- NOTE | 2020-10-21 09:07 | NUR ---
Pt spo2 dropped to 72% on RA, placed pt on 3l NC, spo2 99%. Will continue to monitor.
[2020-10-21 09:21] LABS: RBC,URINE 0-5 /HPF (0-5); WBC,URINE 0-5 /HPF (0-5)
--- NOTE | 2020-10-21 09:57 | NUR ---
Pt resting, HOB elevated for comfort, VSS, will continue to monitor.
[2020-10-21] MEDS ORDERED: SACU1TAB9 PO (10:01)
[2020-10-21] MEDS ORDERED: OMEP20EC11 PO (10:01)
[2020-10-21] MEDS ORDERED: LORazepam 2 MG/ML VIAL IM/IVP PRN (10:55)
[2020-10-21] MEDS ORDERED: MAG SULF 2000 MG/WATER PREMIX 50 ML IV PRN (10:55)
[2020-10-21] MEDS ORDERED: HYDROcodone/APAP 5/325 MG 1 TAB TAB PO PRN (10:55)
[2020-10-21] MEDS ORDERED: ZOLPIDEM 5 MG TAB PO PRN (10:55)
[2020-10-21] MEDS ORDERED: MORPHINE SULFATE 2 MG/ML SYR IVP PRN (10:55)
[2020-10-21] MEDS ORDERED: ONDANSETRON 4 MG/2 ML VIAL IM/IVP PRN (10:55)
[2020-10-21] MEDS ORDERED: NACL 0.9% 1,000 ML IV SCH (10:55)
[2020-10-21] MEDS ORDERED: DOCUSATE SODIUM 100 MG GELCAP PO PRN (10:55)
[2020-10-21] MEDS ORDERED: ACETAMINOPHEN 325 MG TAB PO PRN (10:55)
[2020-10-21] MEDS ORDERED: INSULIN LISPRO SLIDING SCALE 100 UNITS/ML VIAL SUBQ PRN (11:20)
[2020-10-21] MEDS ORDERED: DEXTROSE 50% 50 ML SYR IVP PRN (11:20)
--- NOTE | 2020-10-21 11:36 | NUR ---
Spoke with pt son Shemar for pt updates.
[2020-10-21] MEDS: BLOOD GLUCOSE MONITORING 1 DEV DEV FS SCH ×3 (11:45→21:10)
--- NOTE | 2020-10-21 11:45 | NUR ---
Collected MRSA swab, walked to lab gave to Romana sawyer
--- NOTE | 2020-10-21 11:46 | NUR ---
Pt sleeping, equal visible rise and fall of chest, VSS, will continue to monitor.
--- NOTE | 2020-10-21 11:50 | NUR ---
DR GEE AT BEDSIDE EVALUATING PATIENT
--- NOTE | 2020-10-21 11:50 | NUR ---
Dr. Black at pt bedside for further evaluation.
[2020-10-21 11:52] LABS: CHOL/HDL RATIO 5.9 (1-4.5); MAGNESIUM 2.7 mg/dL (1.8-2.4); PHOSPHORUS 3.6 mg/dL (2.5-4.9); THYROID STIMULATING HORMONE 21.88 uIU/mL (0.34-3.74)
--- NOTE | 2020-10-21 11:52 | NUR ---
Spoke with US moshe Herndon, US to be done in the next 30minutes.
--- NOTE | 2020-10-21 12:03 | NUR ---
LAB AT BEDSIDE FOR BLOOD DRAW
[2020-10-21 12:30] LABS: PROTHROMBIN TIME 16.7 secs (10.8-13.4)
[2020-10-21] MEDS: POTASSIUM CHLORIDE 10 MEQ TABER PO PRN (12:56)
--- NOTE | 2020-10-21 13:37 | NUR ---
Pt resting, HOB lowered for comfort, VSS, will continue to monitor.
--- NOTE | 2020-10-21 15:57 | NUR ---
Gave report to YASMIN LEE for pending admission to 119B. ETA 10minutes.
--- NOTE | 2020-10-21 16:00 | NUR ---
RECEIVED REPORT FROM ER. PATIENT IS AWAKE, ALERT, AND COOPERATIVE, RESPIRATION EVEN UNLABORED ON ROOM AIR. NO DISTRESS NOTED. SKIN IS WARM AND DRY. IV PATENT AND INTACT. HEART RATE REGULAR S1&S2 NOTED. PACEMAKER NOTED. LUNGS SOUNDS CLEAR UPON AUSCULTATION. BOWEL SOUND PRESENT IN ALL QUADRANT. ABDOMEN ROUND AND FIRM. RIGHT INGUINAL HERNIA NOTED. DENIES PAIN AT THIS TIME. PATIENT USE CANE TO AMBULATE. MRSA SCREEN DONE. VITALS WERE TAKEN. ORIENT PATIENT TO ROOM, STAFF, AND CALL LIGHT. ALL SAFETY MEASURES IN PLACE. BED IS AT LOW POSITION, CALL LIGHT WITHIN REACH. WILL CONTINUE TO MONITOR.
--- NOTE | 2020-10-21 16:17 | NUR ---
Patient will be admitted to care of Dr. Black. Admited to TELE. Will go to room 119B. Belongings list completed. Report to YASMIN Grijalva.
[2020-10-21] MEDS: FUROSEMIDE 40 MG/4 ML VIAL IVP SCH (16:44)
[2020-10-21] MEDS ORDERED: FUROSEMIDE 40 MG TAB PO SCH (17:00)
--- NOTE | 2020-10-21 17:00 | NUR ---
SCHEDULED MEDS GIVEN PER ORDER WILL CONTINUE TO MONITOR
[2020-10-21 17:28] VITALS: BP 150/104
--- NOTE | 2020-10-21 19:31 | NUR ---
ENDORSED PATIENT TO WINE CELLAR STOCK CLERK NURSE FOR CONTINUITY OF CARE
[2020-10-21 20:00] VITALS: BP 145/96
--- NOTE | 2020-10-21 20:00 | NUR ---
RECEIVED BEDSIDE REPORT FROM DAY RN EARLIER REGARDING THE PATIENT FOR CONTINUITY OF CARE. RECEIVED PATIENT A/A/OX3, LAYING IN BED NOT IN ANY DISTRESS. PATIENT DENIES ANY ABDOMINAL PAIN, NAUSEA,VOMITING , CHEST PAIN AND PALPITATIONS. VSS, AFEBRILE,SA TING 95% ON RA. FALL PRECAUTION IMPLEMENTED. INSTRUCTED THE PATIENT TO CALL FOR ASSISTANCE AT ALL TIMES WHEN GETTING OUT OF BED. PATIENT VERBALIZED UNDERSTANDING. WILL CONTINUE MONITORING AND POC. CALL LIGHT WITHIN REACH.
[2020-10-21] MEDS: busPIRone 5 MG TAB PO SCH (21:10)
[2020-10-21] MEDS: hydrALAZINE 25 MG TAB PO SCH (21:11)
[2020-10-21] MEDS: carvediloL 12.5 MG TAB PO SCH (21:11)
--- NOTE | 2020-10-21 22:00 | NUR ---
ADMINISTERED ALL THE SCHEDULED MEDICATIONS ORDERED. EDUCATION REGARDING THE MEDICATIONS PROVIDED. NO ADVERSE DRUG REACTION NOTED AND NO COMPLAIN FROM THE PATIENT. WILL CONTINUE OBSERVATION.
[2020-10-22] VITALS: BP 100/67
--- NOTE | 2020-10-22 | NUR ---
PATIENT VITAL SIGNS STABLE, AFEBRILE, SATING 93% ON RA. PACED RHYTHM ON CARDIAC. MONITOR, HR-[id number]. NO COMPLAIN OF PAIN AT THIS TIME. CALL LIGHT WITHIN REACH.
--- NOTE | 2020-10-22 02:00 | NUR ---
PATIENT ASLEEP AT THIS TIME. VISIBLE CHEST RISE AND FALL NOTED. NOT IN ANY DISTRESS AND NO COMPLAIN AT THIS TIME. SAFETY IN PLACED.
[2020-10-22 04:00] VITALS: BP 144/93
--- NOTE | 2020-10-22 04:00 | NUR ---
PATIENT VITAL SIGNS STABLE, AFEBRILE, SATING 95% ON RA. 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 NO COMPLAIN OF PAIN AT THIS TIME. CALL LIGHT WITHIN REACH.
[2020-10-22] MEDS: hydrALAZINE 25 MG TAB PO SCH ×3 (05:52→20:33)
[2020-10-22] MEDS: BLOOD GLUCOSE MONITORING 1 DEV DEV FS SCH ×4 (05:52→20:36)
--- NOTE | 2020-10-22 06:30 | NUR ---
PATIENT STABLE. NO ACUTE EVENT THROUGHOUT THE NIGHT. NOT IN ANY DISTRESS AND NO COMPLAIN AT THIS TIME. ALL NEEDS ATTENDED CALL LIGHT WITHIN REACH. WILL ENDORSE THE PATIENT TO THE ONCOMING RN FOR CONTINUITY OF CARE.
--- NOTE | 2020-10-22 07:02 | NUR ---
PATIENT HAS BEEN SCREENED AND CATEGORIZED MODERATE NUTRITION RISK. PATIENT WILL BE SEEN WITHIN 3-5 DAYS OF ADMISSION. 10/26/20-10/28/20 SHIVA GARBER MS, RDN
--- NOTE | 2020-10-22 07:10 | NUR ---
RECEIVED BEDSIDE REPORT FROM NIGHTSHIFT NURSE FOR CONTINUITY OF CARE. PT IS IN BED SLEEPING WITH VISIBLE CHEST RISE AND FALL. PT IS IN RA WITH NO VISIBLE DISTRESS NOTED. PT ON TELE MONITOR PACED RHYTHM. SKIN IS WARM, DRY, AND INTACT. IV ON LAC 20 GAUGE SALINE LOCK INTACT. PT IS AMBULATORY WITH CANE. PT IS STABLE. PLAN OF CARE DISCUSSED. WILL CONTINUE TO MONITOR.
--- NOTE | 2020-10-22 07:19 | NUR ---
ENDORSED THE PATIENT TO RN'S LIBIA AND LANG FOR CONTINUITY OF CARE. PATIENT STABLE. SIGNING OFF.
[2020-10-22 07:30] LABS: EOSINOPHILS # (AUTO) 0.1 K/uL (0-0.4); EOSINOPHILS % (AUTO) 3.1 % (0.0-4.0); HEMATOCRIT 40.9 % (36-52); HEMOGLOBIN 13.7 g/dL (12.0-18.0); LYMPHOCYTES # (AUTO) 0.6 K/uL (2.0-11.5); MEAN CORPUSCULAR HEMOGLOBIN 30 pg (27-31); MEAN CORPUSCULAR HGB CONC 33 g/dL (33-37); MEAN CORPUSCULAR VOLUME 91.1 fL (80-94); MONOCYTES # (AUTO) 0.4 K/uL (0.8-1.0); MONOCYTES % (AUTO) 9.4 % (1.7-9.3); NEUTROPHILS # (AUTO) 3.3 K/uL (1.8-7.7); NEUTROPHILS % (AUTO) 73.5 % (42.2-75.2); PLATELET COUNT (AUTO) 191 K/uL (140-450); RED BLOOD CELL COUNT(AUTO) 4.49 MIL/uL (4.20-6.10); RED CELL DISTRIBUTION WIDTH 18.3 % (11.6-13.7); WHITE BLOOD COUNT (AUTO) 4.5 K/uL (4.8-10.8)
[2020-10-22 07:33] LABS: ANION GAP 13.2 (8-16); CARBON DIOXIDE 25.5 mmol/L (21-32); CHLORIDE 107 mmol/L (98-107); CREATININE 1.4 mg/dL (0.6-1.3); GLUCOSE 85 mg/dL (74-106); POTASSIUM 3.7 mmol/L (3.5-5.1); SODIUM SERUM 142 mmol/L (136-145); UREA NITROGEN, BLOOD 30 mg/dL (7-18)
[2020-10-22 07:45] LABS: MAGNESIUM 2.4 mg/dL (1.8-2.4); PHOSPHORUS 3.8 mg/dL (2.5-4.9)
[2020-10-22 08:00] VITALS: BP 124/67
[2020-10-22] MEDS ORDERED: ISOSORBIDE MONONITRATE 30 MG PO SCH (09:00)
[2020-10-22] MEDS ORDERED: NON-FORMULARY ITEM (Omeprazole* (Prilosec*) 20 MG) PO SCH (09:00)
[2020-10-22] MEDS ORDERED: CLOPIDOGREL 75 MG TAB PO SCH (09:00)
[2020-10-22 09:06] LABS: T4 (THYROXINE) 7.2 ug/dL (4.5-12.0)
--- NOTE | 2020-10-22 09:20 | NUR ---
PT IS UP AND WALKING IN ROOM. PT IS ALERT AND ORIENTED X4. PT IS ON RA AND NO DISTRESS NOTED. PT IS STABLE. ALL SAFETY MEASURES ARE IN PLACE. WILL CONTINUE TO MONITOR.
[2020-10-22] MEDS: FUROSEMIDE 40 MG/4 ML VIAL IVP SCH ×2 (09:59→16:59)
[2020-10-22] MEDS: PANTOPRAZOLE 40 MG TABEC PO SCH (09:59)
[2020-10-22] MEDS: busPIRone 5 MG TAB PO SCH ×2 (10:00→20:34)
[2020-10-22] MEDS: FERROUS SULFATE 325 MG TABEC PO SCH (10:00)
[2020-10-22] MEDS: ATORVASTATIN 80 MG TAB PO SCH (10:00)
--- NOTE | 2020-10-22 10:00 | NUR ---
DR. HASTINGS AT THE BEDSIDE ASSESSING PT. STATES THAT PT DOES NOT NEED A PARACENTESIS AT THIS TIME. ALSO STATED THAT PT NEEDS TO BE SEEN BY ELECTRONIC TEST TECHNICIAN. ELECTRONIC TEST TECHNICIAN ALREADY ON BOARD.
[2020-10-22] MEDS: ISOSORBIDE MONONITRATE 30 MG TABER PO SCH (10:01)
[2020-10-22] MEDS: carvediloL 12.5 MG TAB PO SCH ×2 (10:10→20:32)
[2020-10-22] MEDS: ECOTRIN 81 MG TABEC PO SCH (10:10)
--- NOTE | 2020-10-22 10:12 | NUR ---
MEDICATION GIVEN PER MD ORDER. PT TOLERATED WELL. MEDICATION EDUCATION PERFORMED AND PT VERBALIZED UNDERSTANDING. NO S/S OF DISTRESS AT THIS TIME. CALL LIGHT IS WITHIN REACH. ALL SAFETY MEASURES ARE IN PLACE. WILL CONTINUE TO MONITOR.
--- NOTE | 2020-10-22 10:52 | NUR ---
RECEIVED A CALL FROM JOHN, PHARMACIST. HE INFORMED ME THAT WE DO NOT HAVE ENTRESTO IN THE PHARMACY. ASKED IF WE COULD HAVE THE PT'S FAMILY BRING THE MEDICATION FROM HOME. WILL ASK PT AND CALL BACK PHARMACY SHORTLY.
--- NOTE | 2020-10-22 11:08 | NUR ---
BS READING IS 89. NO INSULIN COVERAGE NEEDED PER SLIDING SCALE.
--- NOTE | 2020-10-22 11:15 | NUR ---
DROPPED OFF MEDICATION FROM PT HOME MEDS AT PHARMACY CALLED [facility]. PT IS AWARE THAT PHARMACY DOESN'T HAVE HIS HOME MEDICATION.
[2020-10-22 12:00] VITALS: BP 147/89
--- NOTE | 2020-10-22 12:15 | NUR ---
INFORMED DR. HENRY THAT PT IS REQUESTING FOOD. PT IS NPO EXCEPT MEDS. INFORMED DR. HENRY THAT PT WAS SEEN BY DR. JOSHI THIS MORNING AND THAT HE STATED THAT HE DOESN'T NEED A PARACENTESIS. DR. HENRY RESPONDED TO PLACE PT ON HEPATIC DIET.
--- NOTE | 2020-10-22 13:50 | NUR ---
PT IS WALKING FROM BED TO THE DOOR. PT IS ALERT AND ORIENTED X4. PT IS ON RA AND SHOWS NO DISTRESS. PT IS STABLE. WILL CONTINUE TO MONITOR.
--- NOTE | 2020-10-22 15:35 | NUR ---
PT IS WALKING IN ROOM. PT IS ALERT AND ORIENTED X4. PT IS STABLE AND NO DISTRESS NOTED. WILL CONTINUE TO MONITOR.
[2020-10-22 16:00] VITALS: BP 131/77
--- NOTE | 2020-10-22 17:30 | NUR ---
PATIENT LYING DOWN IN BED SLEEPING, WOKEN UP BY VOICE. PT ON RA WITH CHEST RISE AND FALLING. PT DENIES ANY PAIN. NO DISTRESS NOTED. PT IS STABLE. ALL SAFETY MEASURES IN PLACE. WILL CONTINUE TO MONITOR.
--- NOTE | 2020-10-22 19:05 | NUR ---
GAVE BEDSIDE REPORT TO NIGHTSHIFT NURSE FOR CONTINUITY OF CARE. PT IS SITTING IN BED WITH NO DISTRESS NOTED. PT IS STABLE. ALL SAFETY PRECAUTIONS ARE IN PLACE.
--- NOTE | 2020-10-22 19:06 | NUR ---
RECEIVED PATIENT REPORT AT BEDSIDE. PATIENT IS AWAKE, SITTING ON THE BED. PATIENT ON ROOM AIR, NO SIGNS OF DISTRESS, SAFETY MEASURE IMPLEMENTED, CALL LIGHT WITHIN REACH.
[2020-10-22 20:00] VITALS: BP 124/70
--- NOTE | 2020-10-22 21:48 | NUR ---
SCHEDULED MEDICATIONS GIVEN, PT IS AWAKE, NO SIGNS OF DISTRESS, ON ROOM AIR, RESTING COMFORTABLY ON THE BED, SAFETY MEASURES IMPLEMENTED, AND CALL LIGHT WITHIN REACH.
[2020-10-23] VITALS: BP 130/67
--- NOTE | 2020-10-23 00:30 | NUR ---
PATIENT ASLEEP, VITALS SIGNS STABLE, ROOM AIR, AFEBRILE, RESTING COMFORTABLY ON BED, NO SIGNS OF DISTRESS, SAFETY MEASURES IMPLEMENTED, CALL LIGHT WITHIN REACH.
--- NOTE | 2020-10-23 02:00 | NUR ---
PATIENT ASLEEP, AFEBRILE, ROOM AIR, NO SIGNS OF DISTRESS, SAFETY MEASURE IMPLEMENTED, CALL LIGHT WITHIN REACH.
[2020-10-23 04:00] VITALS: BP 99/51
--- NOTE | 2020-10-23 04:00 | NUR ---
PATIENT VITAL SIGNS, STABLE, AFEBRILE, SATING 96% ON RA. WILL HOLD HYDRALAZINE FOR NOW.PACED RHYTHM ON MATERIAL CREW SUPERVISOR, HR- 64. NO COMPLAIN OF PAIN AT THIS TIME. CALL LIGHT WITHIN REACH.
[2020-10-23] MEDS: hydrALAZINE 25 MG TAB PO SCH (05:00)
[2020-10-23] MEDS: BLOOD GLUCOSE MONITORING 1 DEV DEV FS SCH ×2 (05:03→11:34)
--- NOTE | 2020-10-23 06:12 | NUR ---
NO ACUTE EVENT THROUGHOUT THE NIGHT. PATIENT STABLE. NOT IN ANY DISTRESS AND NO COMPLAIN AT THIS TIME. ALL NEEDS ATTENDED. CALL LIGHT WITHIN REACH. WILL ENDORSE THE PATIENT TO THE ONCOMING RN FOR CONTINUITY OF CARE.
[2020-10-23 07:09] LABS: BASOPHILS % (AUTO) 0.5 % (0.0-2.0); EOSINOPHILS # (AUTO) 0.3 K/uL (0-0.4); EOSINOPHILS % (AUTO) 7.4 % (0.0-4.0); HEMATOCRIT 40.6 % (36-52); HEMOGLOBIN 13.4 g/dL (12.0-18.0); LYMPHOCYTES # (AUTO) 0.5 K/uL (2.0-11.5); LYMPHOCYTES % (AUTO) 10.6 % (20.5-51.1); MEAN CORPUSCULAR HEMOGLOBIN 30 pg (27-31); MEAN CORPUSCULAR HGB CONC 33 g/dL (33-37); MEAN CORPUSCULAR VOLUME 91.7 fL (80-94); MONOCYTES # (AUTO) 0.4 K/uL (0.8-1.0); MONOCYTES % (AUTO) 8.7 % (1.7-9.3); NEUTROPHILS # (AUTO) 3.4 K/uL (1.8-7.7); NEUTROPHILS % (AUTO) 72.8 % (42.2-75.2); PLATELET COUNT (AUTO) 222 K/uL (140-450); RED BLOOD CELL COUNT(AUTO) 4.43 MIL/uL (4.20-6.10); RED CELL DISTRIBUTION WIDTH 18.6 % (11.6-13.7); WHITE BLOOD COUNT (AUTO) 4.6 K/uL (4.8-10.8)
--- NOTE | 2020-10-23 07:15 | NUR ---
RECEIVED PATIENT REPORT AT BEDSIDE FOR CONTINUITY OF CARE. PATIENT IS ASLEEP. PATIENT ON ROOM AIR, NO SIGNS OF DISTRESS NOTED, AMBULATORY. SAFETY MEASURE IMPLEMENTED, CALL LIGHT WITHIN REACH, WILL CONTINUE TO MONITOR PATIENT..
[2020-10-23 07:28] LABS: ANION GAP 9.4 (8-16); CARBON DIOXIDE 27.9 mmol/L (21-32); CHLORIDE 108 mmol/L (98-107); CREATININE 1.4 mg/dL (0.6-1.3); GLUCOSE 153 mg/dL (74-106); POTASSIUM 3.3 mmol/L (3.5-5.1); SODIUM SERUM 142 mmol/L (136-145); UREA NITROGEN, BLOOD 27 mg/dL (7-18)
[2020-10-23 07:30] LABS: MAGNESIUM 2.2 mg/dL (1.8-2.4); PHOSPHORUS 2.9 mg/dL (2.5-4.9)
[2020-10-23 08:08] VITALS: BP 106/62
[2020-10-23 08:11] LABS: HEPATITIS A ANTIBODY IGM Negative (Negative); HEPATITIS B CORE AB TOTAL Negative (Negative); HEPATITIS B SURFACE ANTIBODY Non Reactive (.); HEPATITIS B SURFACE ANTIGEN Negative (Negative)
[2020-10-23] MEDS: carvediloL 12.5 MG TAB PO SCH (08:20)
[2020-10-23] MEDS: ISOSORBIDE MONONITRATE 30 MG TABER PO SCH (08:20)
[2020-10-23] MEDS: busPIRone 5 MG TAB PO SCH (09:39)
[2020-10-23] MEDS: FERROUS SULFATE 325 MG TABEC PO SCH (09:39)
[2020-10-23] MEDS: FUROSEMIDE 40 MG/4 ML VIAL IVP SCH (09:39)
[2020-10-23] MEDS: PANTOPRAZOLE 40 MG TABEC PO SCH (09:39)
[2020-10-23] MEDS: ECOTRIN 81 MG TABEC PO SCH (09:39)
[2020-10-23] MEDS: ATORVASTATIN 80 MG TAB PO SCH (09:40)
--- NOTE | 2020-10-23 09:40 | NUR ---
ORDERED MEDICATIONS GIVEN. BP MEDS WITHHELD PER DIRECTION OF DR HENRY. PT HAS NO COMPLAINTS AT THIS TIME. CALL LIGHT WITHIN REACH. WILL CONTINUE TO MONITOR PATIENT.
[2020-10-23] MEDS: POTASSIUM CHLORIDE 10 MEQ TABER PO PRN (10:04)
[2020-10-23] MEDS ORDERED: LACT-103 PO (10:24)
--- NOTE | 2020-10-23 10:45 | NUR ---
DR HENRY TO SEE THE PATIENT. WILL WAIT FOR NEW ORDERS.
[2020-10-23 12:15] VITALS: BP 114/66
--- NOTE | 2020-10-23 12:20 | NUR ---
EDY MCKEON JR AT BEDSIDE. DISCHARGE INSTRUCTIONS AND EDUCATION GIVEN TO SON AND PATIENT. THEY VERBALIZED UNDERSTANDING ABOUT FOLLOW UP WITH PCP IN 3-5 DAYS, TAKE MEDICATIONS PRESCRIBED, MONITOR THE ASCITES AND RETURN TO ER IF ANY PROBLEMS. IV REMOVED, IV CANNULA INTACT, MINIMAL BLEEDING NOTED, ID REMOVED. PATIENT WILL NOW CHANGE INTO OWN CLOTHING TO BE DISCHARGED HOME.
--- NOTE | 2020-10-23 12:45 | NUR ---
PATIENT WHEELED OFF FLOOR WITH EDY MCKEON JR. PATIENT TO BE DISCHARGED HOME. PATIENT TOOK ALL HIS BELONGING WITH HIM.
== END 2020-10-23 13:25 | disposition home or self-care (01) | DRG 682 ==
LOC: MED 07:57 → MTU 10:29
DX: N17.0 Acute kidney failure with tubular necrosis (principal); I50.23 Acute on chronic systolic (congestive) heart failure; I13.0 Hypertensive heart and chronic kidney disease with heart failure and stage 1 through stage 4 chronic kidney disease, or unspecified chronic kidney disease; R18.8 Other ascites; E44.1 Mild protein-calorie malnutrition; D68.9 Coagulation defect, unspecified; I25.10 Atherosclerotic heart disease of native coronary artery without angina pectoris; I48.91 Unspecified atrial fibrillation; E78.5 Hyperlipidemia, unspecified; Z95.0 Presence of cardiac pacemaker; Z95.1 Presence of aortocoronary bypass graft; I25.5 Ischemic cardiomyopathy; Z95.5 Presence of coronary angioplasty implant and graft; I48.0 Paroxysmal atrial fibrillation; N18.9 Chronic kidney disease, unspecified; E11.22 Type 2 diabetes mellitus with diabetic chronic kidney disease; F41.9 Anxiety disorder, unspecified; D50.9 Iron deficiency anemia, unspecified; R16.0 Hepatomegaly, not elsewhere classified; K57.90 Diverticulosis of intestine, part unspecified, without perforation or abscess without bleeding; K40.90 Unilateral inguinal hernia, without obstruction or gangrene, not specified as recurrent; M16.11 Unilateral primary osteoarthritis, right hip; E87.6 Hypokalemia; E86.0 Dehydration; Z68.25 Body mass index [BMI] 25.0-25.9, adult
CPT/HCPCS: 36415; 71045; 76705; 80048; 80053; 81001; 82140; 82948; 83036; 83690; 83735; 83880; 84100; 84134; 84436; 84443; 85025; 85610; 85730; 86704; 86706; 86708; 86709; 86803; 87081; 87340; 96374; 96375; 99285; J1815; J1940; J2405; J3010

== ENCOUNTER 2021-11-10 23:45 | Emergency (ER) | payer OTHER, MEDICAID ==
[~2021-11-10] VITALS: Ht 165.1 cm; Wt 68.5 kg
[~2021-11-10 23:45] MED LIST changes: -BISA5TAB79 PO; -FAMO-90 PO; +LACT-103 PO; +OMEP20EC11 PO; -OXYM20SP1 NS; -RIVA15TA1 PO; -SPIR25TA20 PO
[2021-11-10 23:50] VITALS: BP 152/107
--- NOTE | 2021-11-10 23:57 | NUR ---
PT AMBULATED WITH CANE TO BED #3
--- NOTE | 2021-11-11 00:01 | NUR ---
76 Y/O MALE BIBS FROM HOME, C/O abdominal pain x 3 weeks, Patient reported, had on and off abodminal pain for 3 weeks, no N/V/D. PT STATES HE STILL HAS A BM EVERY DAY. PT STATES 9/10 CENTRAL ABDOMINAL PAIN, RADIATES TO LLQ. NO MASS OR OBVIOUS TRAUMA. A/OX4, GCS-15; UNLABORED BREATHING AND SPEAKING IN FULL SENTENCES; AMBULATORY WITH A CANE; SKIN IS PINK/WARM/DRY. PMHx: DM, HTN, Pacemaker, Anemia, HLD and GERD NKA
--- NOTE | 2021-11-11 00:03 | NUR ---
ERMD AT BEDSIDE EXAMINING PT
[2021-11-11] MEDS ORDERED: NACL 0.9% 1,000 ML IV ONE (00:10)
[2021-11-11] MEDS ORDERED: KETOROLAC 30 MG/ML VIAL IVP ONE (00:10)
--- NOTE | 2021-11-11 00:20 | NUR ---
SMOKING PIPE DRILLER AND THREADER AT BEDSIDE
[2021-11-11 00:30] LABS: APPEARANCE,URINE CLEAR (CLEAR); BILIRUBIN,URINE 1+ (NEGATIVE); BLOOD, URINE NEGATIVE (NEGATIVE); COLOR,URINE YELLOW (YELLOW); LEUKOCYTE ESTERASE ,URINE NEGATIVE (NEGATIVE); NITRITE, URINE NEGATIVE (NEGATIVE); UGLUCOSE NEGATIVE (NEGATIVE)
[2021-11-11 00:32] LABS: BASOPHILS % (AUTO) 0.7 % (0.0-2.0); EOSINOPHILS # (AUTO) 0.4 K/uL (0-0.4); EOSINOPHILS % (AUTO) 5.8 % (0.0-4.0); HEMATOCRIT 47.6 % (36-52); HEMOGLOBIN 15.7 g/dL (12.0-18.0); LYMPHOCYTES # (AUTO) 1.1 K/uL (2.0-11.5); LYMPHOCYTES % (AUTO) 17.2 % (20.5-51.1); MEAN CORPUSCULAR HEMOGLOBIN 30 pg (27-31); MEAN CORPUSCULAR HGB CONC 33 g/dL (33-37); MEAN CORPUSCULAR VOLUME 89.5 fL (80-94); MONOCYTES # (AUTO) 0.6 K/uL (0.8-1.0); NEUTROPHILS # (AUTO) 4.1 K/uL (1.8-7.7); NEUTROPHILS % (AUTO) 67.3 % (42.2-75.2); PLATELET COUNT (AUTO) 316 K/uL (140-450); RED BLOOD CELL COUNT(AUTO) 5.32 MIL/uL (4.20-6.10); RED CELL DISTRIBUTION WIDTH 16.7 % (11.6-13.7); WHITE BLOOD COUNT (AUTO) 6.2 K/uL (4.8-10.8)
[2021-11-11 00:45] LABS: RBC,URINE 0-5 /HPF (0-5)
[2021-11-11 00:46] LABS: HYALINE CASTS, URINE 0-5 /LPF (None Seen); WBC,URINE 0-5 /HPF (0-5)
--- NOTE | 2021-11-11 00:55 | NUR ---
PT BROUGHT TO CT VIA WHEELCHAIR
[2021-11-11 01:04] LABS: ANION GAP 15.6 (8-16); CARBON DIOXIDE 25.6 mmol/L (21-32); CHLORIDE 101 mmol/L (98-107); GLUCOSE 113 mg/dL (74-106); POTASSIUM 4.2 mmol/L (3.5-5.1); SODIUM SERUM 138 mmol/L (136-145); UREA NITROGEN, BLOOD 26 mg/dL (7-18)
[2021-11-11 01:05] LABS: ALBUMIN 4.2 g/dL (3.4-5.0); ASPARTATE AMINOTRANSFERASE 36 U/L (15-37); CREATININE 1.7 mg/dL (0.6-1.3); TOTAL BILIRUBIN 1.6 mg/dL (0.0-1.0)
[2021-11-11 04:26] VITALS: BP 163/115
--- NOTE | 2021-11-11 04:26 | NUR ---
Patient discharged with v/s stable. Written and verbal after care instructions given and explained. Patient verbalized understanding. Ambulatory with steady gait. All questions addressed prior to discharge. Advised to follow up with PMD. VSS, A/OX4, UNLABORED BREATHING, AMBULATORY, AND CALM DEMEANOR.
--- NOTE | 2021-11-13 10:22 | NUR ---
LATE ENTRY. 0.9% NS DISCONTINUED AT 0426 ON 11/11/21
== END 2021-11-11 04:26 | disposition home or self-care (01) ==
LOC: MED 23:45
DX: K74.60 Unspecified cirrhosis of liver (principal); I50.9 Heart failure, unspecified; I10 Essential (primary) hypertension; E11.9 Type 2 diabetes mellitus without complications; K21.9 Gastro-esophageal reflux disease without esophagitis; Z79.4 Long term (current) use of insulin; Z79.899 Other long term (current) drug therapy
CPT/HCPCS: 36415; 74176; 80053; 81001; 85025; 96361; 96374; 99284; J1885; J7030